=== PATIENT | female | born 1990 | race Caucasian/White ===

== ENCOUNTER 2017-07-02 11:58 | Inpatient (IN) | payer BC, OTHER ==
[~2017-07-02] VITALS: Ht 162.6 cm; Wt 113.3 kg
[~2017-07-02 11:58] MED LIST: CEPH500 PO; CODACE30 PO; IBUP800 PO; Lopressor 25 mg25 MG PO; METO25 PO; METO25ER PO; OXYACE5T PO
[2017-07-06] MEDS ORDERED: ACET325 PO (08:03)
[2017-07-06] MEDS ORDERED: Prenatabs FA T1 EACH PO (08:04)
[2017-07-08 10:28] LABS: BASOPHILS ABSOLUTE AUTO 0.02 K/mm3 (0.00-0.23); BASOPHILS PERCENT AUTO 0 % (0-2); EOSINOPHILS ABSOLUTE AUTO 0.29 K/mm3 (0.00-0.68); EOSINOPHILS PERCENT AUTO 2 % (0-6); Hematocrit 37.6 % (33.0-51.0); Hemoglobin 11.9 g/dL (11.5-16.0); IMMATURE GRAN ABSOLUTE AUTO 0.11 K/mm3 (0.00-0.10); IMMATURE GRAN PERCENT AUTO 1 % (0-1); LYMPHOCYTES ABSOLUTE AUTO 1.83 K/mm3 (0.84-5.20); LYMPHOCYTES PERCENT AUTO 14 % (21-46); MONOCYTES ABSOLUTE AUTO 1.03 K/mm3 (0.16-1.47); MONOCYTES PERCENT AUTO 8 % (4-13); Mean Corpuscular HGB 26.6 pg (26.0-34.0); Mean Corpuscular HGB Conc 31.6 g/dL (31.5-36.5); Mean Corpuscular Volume 84 fL (80-100); Mean Platelet Volume 10.1 fL (9.1-12.4); NEUTROPHILS ABSOLUTE AUTO 9.94 K/mm3 (1.96-9.15); NEUTROPHILS PERCENT AUTO 75 % (41-73); Platelet Count 247 K/mm3 (150-400); RDW Coefficient Variation 16.4 % (11.7-14.2); RDW Standard Deviation 49.9 fL (35.1-46.3); Red Blood Cell Count 4.47 M/mm3 (3.80-5.20); White Blood Cell Count 13.22 K/mm3 (4.00-11.30)
[2017-07-09 08:17] LABS: PCO2 Cord - Arterial 53.1 mmHg (40-50); PO2 Cord - Arterial 16.9 mmHg (16-20); pH Cord - Arterial 7.31 (7.28-7.35)
[2017-07-09 08:24] LABS: PCO2 Cord - Venous 42.9 mmHg (40-50); PO2 Cord - Venous 30.5 mmHg (28-32); pH Umbilical Cord - Venous 7.37 (7.26-7.35)
[2017-07-10 06:38] LABS: Hematocrit 33.1 % (33.0-51.0); Hemoglobin 10.2 g/dL (11.5-16.0); Mean Corpuscular HGB 26.4 pg (26.0-34.0); Mean Corpuscular HGB Conc 30.8 g/dL (31.5-36.5); Mean Corpuscular Volume 86 fL (80-100); Mean Platelet Volume 10.3 fL (9.1-12.4); Platelet Count 198 K/mm3 (150-400); RDW Standard Deviation 52.5 fL (35.1-46.3); Red Blood Cell Count 3.87 M/mm3 (3.80-5.20); White Blood Cell Count 10.65 K/mm3 (4.00-11.30)
== END 2017-07-11 13:13 | disposition home or self-care (01) | DRG 766 ==
LOC: BC 07-09 05:52
PROVIDERS: Obstetrics & Gynecology
PROC: 10D00Z1 Extraction of Products of Conception, Low, Open Approach (ICD-10-PCS; principal; 2017-07-09 07:30)
DX: O34.211 Maternal care for low transverse scar from previous cesarean delivery (principal); O13.4 Gestational [pregnancy-induced] hypertension without significant proteinuria, complicating childbirth; O36.63X0 Maternal care for excessive fetal growth, third trimester, not applicable or unspecified; Z3A.39 39 weeks gestation of pregnancy; Z37.0 Single live birth; O69.81X0 Labor and delivery complicated by cord around neck, without compression, not applicable or unspecified
CPT/HCPCS: 36415; 82803; 85025; 85027; 86850; 86900; 86901; 93005; 93010; J0690; J0697; J1885; J2405; J2590; J2765; J7120

== ENCOUNTER 2018-03-13 09:24 | Emergency (ER) | payer MEDICAID ==
[~2018-03-13] VITALS: Ht 167.6 cm; Wt 90.7 kg
[~2018-03-13 09:24] MED LIST changes: +ACET325 PO; +Prenatabs FA T1 EACH PO
[2018-03-13] MEDS ORDERED: OLUX100 GM (10:02)
[2018-03-13] MEDS ORDERED: IBUP600 PO (10:55)
== END 2018-03-13 11:00 | disposition home or self-care (01) ==
LOC: ER 09:24
DX: J02.0 Streptococcal pharyngitis (principal); Z79.899 Other long term (current) drug therapy
CPT/HCPCS: 87430; 96372; 99282; J0561; J1100

== ENCOUNTER 2019-04-07 15:13 | Inpatient (IN) | payer OTHER ==
[2019-04-06 15:45] LABS: BASOPHILS ABSOLUTE AUTO 0.04 K/mm3 (0.00-0.23); BASOPHILS PERCENT AUTO 0 % (0-2); EOSINOPHILS ABSOLUTE AUTO 0.21 K/mm3 (0.00-0.68); EOSINOPHILS PERCENT AUTO 2 % (0-6); Hematocrit 35.3 % (33.0-51.0); Hemoglobin 10.8 g/dL (11.5-16.0); IMMATURE GRAN ABSOLUTE AUTO 0.05 K/mm3 (0.00-0.10); IMMATURE GRAN PERCENT AUTO 1 % (0-1); LYMPHOCYTES ABSOLUTE AUTO 1.74 K/mm3 (0.84-5.20); LYMPHOCYTES PERCENT AUTO 17 % (21-46); MONOCYTES ABSOLUTE AUTO 0.82 K/mm3 (0.16-1.47); MONOCYTES PERCENT AUTO 8 % (4-13); Mean Corpuscular HGB 25.2 pg (26.0-34.0); Mean Corpuscular HGB Conc 30.6 g/dL (31.5-36.5); Mean Corpuscular Volume 83 fL (80-100); Mean Platelet Volume 11.1 fL (9.1-12.4); NEUTROPHILS ABSOLUTE AUTO 7.63 K/mm3 (1.96-9.15); NEUTROPHILS PERCENT AUTO 73 % (41-73); Platelet Count 204 K/mm3 (150-400); RDW Standard Deviation 47.8 fL (35.1-46.3); Red Blood Cell Count 4.28 M/mm3 (3.80-5.20); White Blood Cell Count 10.49 K/mm3 (4.00-11.30)
[~2019-04-07] VITALS: Ht 165.1 cm; Wt 116.2 kg
[~2019-04-07 15:13] MED LIST changes: +IBUP600 PO; +OLUX100 GM; +PRENATAL TABLE1 EAC2 PO
[2019-04-08 11:41] LABS: PCO2 Cord - Arterial 53.2 mmHg (40-50); PO2 Cord - Arterial 20.2 mmHg (16-20); pH Cord - Arterial 7.25 (7.28-7.35)
[2019-04-08 11:43] LABS: PCO2 Cord - Venous 39.6 mmHg (40-50); PO2 Cord - Venous 29.4 mmHg (28-32); pH Umbilical Cord - Venous 7.38 (7.26-7.35)
[2019-04-08 11:48] LABS: PCO2 Cord - Arterial 54.8 mmHg (40-50); PO2 Cord - Arterial 15.5 mmHg (16-20)
[2019-04-08 11:49] LABS: PCO2 Cord - Venous 42.8 mmHg (40-50); PO2 Cord - Venous 20.4 mmHg (28-32); pH Umbilical Cord - Venous 7.35 (7.26-7.35)
--- NOTE | 2019-04-08 11:49 | NUR ---
04/08/19 1149 Deanne Goodman 1122 DELIVERY VIABLE FEMALE WEIGHT 2525GM 5# 9OZ, APGARS 9/9 HEAD 13 INCHES, CHEST 12 INCHES, LENGTH 19 INCHES, UMBILICAL CORD BLOOD COLLECTED LABELED BABY A GIVEN TO RN, 1123 DELIVERY BABY B VIABLE FEMALE INFANT ZOE 2545GM 5# 10OZ, HEAD 13 INCHES, CHEST 12.75 INCHES, LENGTH 18.5 INCHES APGARS 9/9, UMBILICAL CORD BLOOD COLLECTED LABELED BABY B GIVEN TO RN. UMIBILICAL CORD SEGMENTS FROM EACH BABY COLLECTED LABELED BABY A AND BABY B SENT WITH RT FOR CORD GASES. RIGHT AND LEFT FALLOPIAN TUBES COLLECTED LABELED A: RIGHT FALLOPIAN TUBE, B: LEFT FALLOPIAN TUBE C: PLACENTA ( CLAMP ON BABY B CORD)
--- NOTE | 2019-04-08 12:55 | NUR ---
DR. ROMERO IN PACU TO SEE BABIES PT DENIES PAIN OR DISCOMFORT, ABLE TO MOVE BOTH FEET
--- NOTE | 2019-04-08 14:00 | NUR ---
REPORT OFF TO CHARLY MOLINAC
--- NOTE | 2019-04-09 05:41 | NUR ---
T/O SHIFT PATIENT DENIED NEED FOR REPOSITIONING. RN OFFERED TO REPOSITION PATIENT T/O SHIFT IN WHICH PATIENT REFUSED. UPON ENTERING ROOM PATIENT WAS SCOOTING HERSELF UP IN THE BED. RN OFFERED TO HELP THE PATIENT, PATIENT STATED SHE COULD DO IT AND DENIED ANY HELP.
[2019-04-09 06:02] LABS: BASOPHILS ABSOLUTE AUTO 0.03 K/mm3 (0.00-0.23); BASOPHILS PERCENT AUTO 0 % (0-2); EOSINOPHILS ABSOLUTE AUTO 0.15 K/mm3 (0.00-0.68); EOSINOPHILS PERCENT AUTO 2 % (0-6); Hematocrit 31.4 % (33.0-51.0); Hemoglobin 9.6 g/dL (11.5-16.0); IMMATURE GRAN ABSOLUTE AUTO 0.04 K/mm3 (0.00-0.10); IMMATURE GRAN PERCENT AUTO 1 % (0-1); LYMPHOCYTES ABSOLUTE AUTO 1.89 K/mm3 (0.84-5.20); LYMPHOCYTES PERCENT AUTO 21 % (21-46); MONOCYTES ABSOLUTE AUTO 0.56 K/mm3 (0.16-1.47); MONOCYTES PERCENT AUTO 6 % (4-13); Mean Corpuscular HGB 25.5 pg (26.0-34.0); Mean Corpuscular HGB Conc 30.6 g/dL (31.5-36.5); Mean Corpuscular Volume 84 fL (80-100); Mean Platelet Volume 11.1 fL (9.1-12.4); NEUTROPHILS ABSOLUTE AUTO 6.17 K/mm3 (1.96-9.15); NEUTROPHILS PERCENT AUTO 70 % (41-73); Platelet Count 185 K/mm3 (150-400); RDW Coefficient Variation 16.7 % (11.7-14.2); RDW Standard Deviation 49.2 fL (35.1-46.3); Red Blood Cell Count 3.76 M/mm3 (3.80-5.20); White Blood Cell Count 8.84 K/mm3 (4.00-11.30)
--- NOTE | 2019-04-09 10:00 | NUR ---
ASSUMED CARE. PT IN BED FEEDING NB.
--- NOTE | 2019-04-09 11:00 | NUR ---
PT IV INFILTRATED. EMIR FRANCISCO CNM TALKED TO DR ROTH, AND PT DOES NOT NEED TO HAVE THE LAST DOSE OF ABX.
--- NOTE | 2019-04-09 18:31 | NUR ---
REPORT TO ONCOMING SHIFT
--- NOTE | 2019-04-09 20:00 | NUR ---
RN IN ROOM DOING ASSESSMENTS. SUGGESTED TO MOM ABOUT FEEDING BABIES SOON SINCE IT HAD BEEN TWO HOURS. EDUCATED MOM ON INFANT WEIGHT LOSS AND CONCERNS WITH FEEDS. SUGGESTED INCREASING SNS AMOUNT TO 15CC IF TOLERATED AND TO FEED BABIES EVERY 2-2.5 HOURS.
--- NOTE | 2019-04-09 22:00 | NUR ---
RN TO ROOM TO SEE HOW FEEDING WENT. MOM STATED SHE HAD ATTEMPTED TO PUT BABY B TO BREAST, SHE SUCKLED FOR A FEW SECONDS AND THEN FELL BACK TO SLEEP SO SHE WENT FOR A WALK. IT HAD BEEN ALMOST FOUR HOURS SINCE LAST FEED, RN EDUCATED MOM ON THE IMPORTANCE FOR FEEDING INFANTS EVERY 2-2.5 HOURS. RN DISCUSSED WITH PATIENT PUMPING AND SYRINGE FEEDING BABIES PUMPED COLOSTRUM. EDUCATED MOM ON RNS CONCERNS REGARDING BABIES WEIGHT LOSS. BABY A BEING AT -8% BABY B AT -6%. DISCUSSED CONCERNS OF BABIES WORKING TOO HARD AND BURNING ENERGY AT THE BREAST DUE TO BABIES NOT LATCHING/SUCKING WELL AT THE BREAST. MOM STATED SHE REFUSES TO PUMP HER BREASTS BECAUSE SHE DOES NOT WANT TO START CRAMPING. STATES SHE FEELS THAT HER MILK WILL BE IN SOON AND PLANS TO CONTINUE TO DO SNS AT THE BREAST W/ 15CC FORMULA.
--- NOTE | 2019-04-10 10:51 | NUR ---
CONSULT. MOM IS EXPERIENCED WITH BF FULL TERM INFANTS. FEELS LIKE HER MILK IS STARTING TO COME IN. DOES NOT WANT TO PUMP, FEELS HER BODY WILL RESPOND ON ITS OWN. INSTRUCT IN THE NEEDS OF THE , ENERGY CONSERVATION, LIMITED LENGTH OF FEEDINGS TO CONSERVE ENERGY, SLOWER WT GAIN, AND THEIR INCREASED NEED TO SLEEP. INSTRUCT IN CHANGES TO EXPECT DURING THE FIRST WEEK WITH FEEDINGS AND WITH BABY'S, AND THAT THEIR FULL FEEDING STRENGTH WILL OCCUR SLOWLY OVER THE NEXT 3-4 WEEKS, AND THEIR ABILITY TO ONLY BF WILL SLOWLY IMPROVE ALSO. QUESTIONS ANSWERED. PLAN IS TO PROVIDE FEEDING SYRINGES, FEEDING TUBE WITH SNS SYRINGE, DIFFERENT TYPES OF NIPPLES FOR BOTTLES, TO TRY ALONG WITH BF SO BABY'S GET ENOUGH CALORIES IN TO START GAINING WEIGHT.
--- NOTE | 2019-04-10 16:53 | NUR ---
Assumed care from Elian Cuello RN.
[2019-04-10] MEDS ORDERED: Percocet 5-3251 EACH PO (18:26)
[2019-04-10] MEDS ORDERED: IBUP800 PO (18:27)
--- NOTE | 2019-04-10 19:30 | NUR ---
ASSUMED CARE OF PT. REPORT RECEIVED FROM BLAS Padilla
== END 2019-04-11 19:20 | disposition home or self-care (01) | DRG 785 ==
LOC: BC 04-08 09:33
PROVIDERS: ADMIT Obstetrics & Gynecology
PROC: 10D00Z1 Extraction of Products of Conception, Low, Open Approach (ICD-10-PCS; principal; 2019-04-08 10:45)
PROC: 0UT70ZZ Resection of Bilateral Fallopian Tubes, Open Approach (ICD-10-PCS; 2019-04-08 10:45)
DX: O34.211 Maternal care for low transverse scar from previous cesarean delivery (principal); O30.033 Twin pregnancy, monochorionic/diamniotic, third trimester; N85.8 Other specified noninflammatory disorders of uterus; Z3A.36 36 weeks gestation of pregnancy; Z37.2 Twins, both liveborn; O99.02 Anemia complicating childbirth; D64.9 Anemia, unspecified; O99.824 Streptococcus B carrier state complicating childbirth; O32.8XX2 Maternal care for other malpresentation of fetus, fetus 2; O99.72 Diseases of the skin and subcutaneous tissue complicating childbirth; L40.50 Arthropathic psoriasis, unspecified; Z30.2 Encounter for sterilization; Z79.899 Other long term (current) drug therapy
CPT/HCPCS: 36415; 82803; 85025; 86850; 86900; 86901; 88302; 88307; 93005; 93010; J0690; J1885; J2590; J2765; J3010; J7120

== ENCOUNTER → 2019-06-02 | Outpatient (CLI) | payer OTHER ==
[~2019-06-02] MED LIST changes: +Percocet 5-3251 EACH PO
[2019-06-02 16:04] LABS: BASOPHILS ABSOLUTE AUTO 0.07 K/mm3 (0.00-0.23); BASOPHILS PERCENT AUTO 1 % (0-2); EOSINOPHILS ABSOLUTE AUTO 0.42 K/mm3 (0.00-0.68); EOSINOPHILS PERCENT AUTO 4 % (0-6); Hemoglobin 13.5 g/dL (11.5-16.0); IMMATURE GRAN ABSOLUTE AUTO 0.02 K/mm3 (0.00-0.10); IMMATURE GRAN PERCENT AUTO 0 % (0-1); LYMPHOCYTES ABSOLUTE AUTO 2.23 K/mm3 (0.84-5.20); LYMPHOCYTES PERCENT AUTO 23 % (21-46); MONOCYTES ABSOLUTE AUTO 0.56 K/mm3 (0.16-1.47); MONOCYTES PERCENT AUTO 6 % (4-13); Mean Corpuscular HGB 26.1 pg (26.0-34.0); Mean Corpuscular HGB Conc 32.1 g/dL (31.5-36.5); Mean Corpuscular Volume 81 fL (80-100); Mean Platelet Volume 9.7 fL (9.1-12.4); NEUTROPHILS ABSOLUTE AUTO 6.55 K/mm3 (1.96-9.15); NEUTROPHILS PERCENT AUTO 67 % (41-73); Platelet Count 297 K/mm3 (150-400); RDW Coefficient Variation 15.6 % (11.7-14.2); RDW Standard Deviation 46.5 fL (35.1-46.3); Red Blood Cell Count 5.17 M/mm3 (3.80-5.20); White Blood Cell Count 9.85 K/mm3 (4.00-11.30)
[2019-06-02 16:14] LABS: Alanine Aminotransfer (ALT/SGP 41 U/L (12-78); Albumin, Blood 4.3 g/dL (3.4-5.0); Albumin/Globulin Ratio 1.2 (0.8-1.8); Alk Phos 91 U/L (40-126); Anion Gap 11 mmol/L (6-16); Aspartate Aminotrans (AST/SGOT 29 U/L (12-37); Bilirubin, Total 0.4 mg/dL (0.1-1.0); Blood Urea Nitrogen 13 mg/dL (8-24); Bun/Creatinine Ratio 16.3 (12.0-20.0); CO2, Blood 26 mmol/L (21-32); Calcium, Blood 9.1 mg/dL (8.5-10.1); Chloride, Blood 107 mmol/L (98-108); Globulin, Blood 3.5 g/dL (2.2-4.0); Glomerular Filtration Rate >60 (60-); Glucose, Blood 84 mg/dL (70-99); Potassium, Blood 3.8 mmol/L (3.5-5.5); Sodium, Blood 144 mmol/L (136-145); Total Protein, Blood 7.8 g/dL (6.4-8.2)
== END | disposition home or self-care (01) ==
LOC: LAB SHORT 15:59 → LAB EV 15:59
PROVIDERS: Physician Assistant
DX: R11.2 Nausea with vomiting, unspecified (principal)
CPT/HCPCS: 80053; 83690; 85025

== ENCOUNTER → 2020-04-20 | Outpatient (CLI) | payer OTHER | LOC: LAB SHORT 18:15 | DX: J02.9 Acute pharyngitis, unspecified (principal) | CPT/HCPCS: 87081 ==

== ENCOUNTER 2021-12-25 17:32 | Emergency (ER) | payer OTHER ==
[~2021-12-25] VITALS: Ht 165.1 cm; Wt 104.3 kg
[2021-12-25 18:05] LABS: BASOPHILS ABSOLUTE AUTO 0.08 K/mm3 (0.00-0.23); BASOPHILS PERCENT AUTO 1 % (0-2); EOSINOPHILS ABSOLUTE AUTO 0.45 K/mm3 (0.00-0.68); EOSINOPHILS PERCENT AUTO 4 % (0-6); Hematocrit 42.1 % (33.0-51.0); Hemoglobin 13.6 g/dL (11.5-16.0); IMMATURE GRAN ABSOLUTE AUTO 0.03 K/mm3 (0.00-0.10); IMMATURE GRAN PERCENT AUTO 0 % (0-1); LYMPHOCYTES PERCENT AUTO 26 % (21-46); MONOCYTES ABSOLUTE AUTO 0.61 K/mm3 (0.16-1.47); MONOCYTES PERCENT AUTO 6 % (4-13); Mean Corpuscular HGB 26.9 pg (26.0-34.0); Mean Corpuscular HGB Conc 32.3 g/dL (31.5-36.5); Mean Corpuscular Volume 83 fL (80-100); Mean Platelet Volume 9.8 fL (9.1-12.4); NEUTROPHILS ABSOLUTE AUTO 6.51 K/mm3 (1.96-9.15); NEUTROPHILS PERCENT AUTO 63 % (41-73); Platelet Count 298 K/mm3 (150-400); RDW Coefficient Variation 13.1 % (11.7-14.2); RDW Standard Deviation 39.7 fL (35.1-46.3); Red Blood Cell Count 5.05 M/mm3 (3.80-5.20); White Blood Cell Count 10.38 K/mm3 (4.00-11.30)
[2021-12-25 18:47] LABS: Albumin, Blood 3.8 g/dL (3.4-5.0); Bilirubin, Total 0.2 mg/dL (0.1-1.0); Bun/Creatinine Ratio 18.3 (12.0-20.0); C-REACTIVE PROTEIN, EXT RANGE 1.32 mg/dL (0.000-0.300); Calcium, Blood 9.5 mg/dL (8.5-10.1); Creatinine, Blood 0.71 mg/dL (0.40-1.00); Globulin, Blood 3.8 g/dL (2.2-4.0); Potassium, Blood 3.5 mmol/L (3.5-5.5); Total Protein, Blood 7.6 g/dL (6.4-8.2)
== END 2021-12-25 22:10 | disposition home or self-care (01) ==
LOC: ER 17:32
PROVIDERS: Physician Assistant
DX: R07.89 Other chest pain (principal); R06.02 Shortness of breath; R20.2 Paresthesia of skin; R00.2 Palpitations; Z79.899 Other long term (current) drug therapy
CPT/HCPCS: 36415; 71045; 80053; 84484; 85025; 85379; 86140

== ENCOUNTER → 2022-04-30 | Outpatient (CLI) | payer OTHER | END | disposition home or self-care (01) | LOC: LAB 14:05 → LAB SHORT 14:05 | DX: J02.9 Acute pharyngitis, unspecified (principal) | CPT/HCPCS: 87081 ==

== ENCOUNTER 2022-05-03 11:54 | Emergency (ER) | payer OTHER ==
[~2022-05-03] VITALS: Ht 165.1 cm; Wt 108.9 kg
[2022-05-03 12:55] LABS: Source, Urine Clean Catch
[2022-05-03 12:59] LABS: Appearance, Urine Clear (Clear); Bilirubin, Urine Neg (Neg); Blood, Urine Neg (Neg); Color, Urine Yellow (P-Yellow); Glucose Qualitative, Urine Neg (Neg); Ketones, Urine Neg (Neg); Leukocyte Esterase, Urine Neg (Neg); Nitrite, Urine Neg (Neg); Protein, Urine Neg (Neg); Urobilinogen, Urine NORM (Normal)
[2022-05-03 13:11] LABS: U Amphetamine Screen Not Detected; U Barbituate Screen Not Detected; U Benzodiazapine Screen Not Detected; U Buprenorphine Screen Not Detected; U Cannabinoids Screen Not Detected; U Cocaine Screen Not Detected; U Methadone Screen Not Detected; U Methamphetamine Screen Not Detected; U Opiates Screen Not Detected; U Oxycodone Screen Not Detected; U Phencyclidine Screen Not Detected; U Propoxyphene Screen Not Detected
[2022-05-03 13:50] LABS: BASOPHILS ABSOLUTE AUTO 0.06 K/mm3 (0.00-0.23); BASOPHILS PERCENT AUTO 1 % (0-2); EOSINOPHILS ABSOLUTE AUTO 0.37 K/mm3 (0.00-0.68); EOSINOPHILS PERCENT AUTO 4 % (0-6); Hematocrit 42.9 % (33.0-51.0); Hemoglobin 14.1 g/dL (11.5-16.0); IMMATURE GRAN ABSOLUTE AUTO 0.02 K/mm3 (0.00-0.10); IMMATURE GRAN PERCENT AUTO 0 % (0-1); LYMPHOCYTES ABSOLUTE AUTO 2.41 K/mm3 (0.84-5.20); LYMPHOCYTES PERCENT AUTO 25 % (21-46); MONOCYTES ABSOLUTE AUTO 0.53 K/mm3 (0.16-1.47); MONOCYTES PERCENT AUTO 6 % (4-13); Mean Corpuscular HGB 27.6 pg (26.0-34.0); Mean Corpuscular HGB Conc 32.9 g/dL (31.5-36.5); Mean Corpuscular Volume 84 fL (80-100); Mean Platelet Volume 10.7 fL (9.1-12.4); NEUTROPHILS ABSOLUTE AUTO 6.29 K/mm3 (1.96-9.15); NEUTROPHILS PERCENT AUTO 65 % (41-73); Platelet Count 328 K/mm3 (150-400); RDW Standard Deviation 39.6 fL (35.1-46.3); White Blood Cell Count 9.68 K/mm3 (4.00-11.30)
[2022-05-03 14:13] LABS: Alanine Aminotransfer (ALT/SGP 46 U/L (12-78); Albumin, Blood 3.7 g/dL (3.4-5.0); Albumin/Globulin Ratio 0.9 (0.8-1.8); Alk Phos 67 U/L (50-136); Anion Gap 4 mmol/L (6-16); Aspartate Aminotrans (AST/SGOT 60 U/L (12-37); Bilirubin, Total 0.5 mg/dL (0.1-1.0); Blood Urea Nitrogen 10 mg/dL (8-24); Bun/Creatinine Ratio 16.4 (12.0-20.0); CO2, Blood 26 mmol/L (21-32); Chloride, Blood 107 mmol/L (98-108); Creatinine, Blood 0.61 mg/dL (0.40-1.00); Ethanol (Alcohol), Blood, Med <3 mg/dL; Glomerular Filtration Rate 123 (60-); Glucose, Blood 84 mg/dL (70-99); Potassium, Blood 4.6 mmol/L (3.5-5.5); Sodium, Blood 137 mmol/L (136-145); Total Protein, Blood 7.7 g/dL (6.4-8.2)
== END 2022-05-03 15:00 | disposition home or self-care (01) ==
LOC: ER 11:54
PROVIDERS: Physician Assistant
DX: H53.9 Unspecified visual disturbance (principal)
CPT/HCPCS: 36415; 70450; 80053; 81003; 85025; 93005; 93010; G0480

== ENCOUNTER 2022-07-25 08:41 | Day surgery (SDC) | payer OTHER ==
--- NOTE | 2022-07-25 10:06 | NUR ---
PT PREPPED FOR CTA PER PROTOCOL, 3 DOSES OF IV METPROLOL 5 MG IV GIVEN THRU 20 G IV IN R AC. PT EDU WELL, CTA COMPLETED, PT DRESSED AND AMBULATES OUT OF CT AREA - STABLE. SEE CT WORKSHEET FOR MED/VS, PRE, DURING, AND POST PROCEDURE
== END 2022-07-25 22:42 | disposition home or self-care (01) ==
LOC: CT 08:41
DX: R07.9 Chest pain, unspecified (principal); R42 Dizziness and giddiness
CPT/HCPCS: 75574; Q9967

== ENCOUNTER → 2022-11-17 | Outpatient (CLI) | payer OTHER ==
[2022-11-17 12:36] LABS: BASOPHILS ABSOLUTE AUTO 0.05 K/mm3 (0.00-0.23); BASOPHILS PERCENT AUTO 1 % (0-2); EOSINOPHILS ABSOLUTE AUTO 0.44 K/mm3 (0.00-0.68); EOSINOPHILS PERCENT AUTO 5 % (0-6); Hematocrit 39.1 % (33.0-51.0); Hemoglobin 13.1 g/dL (11.5-16.0); IMMATURE GRAN ABSOLUTE AUTO 0.03 K/mm3 (0.00-0.10); IMMATURE GRAN PERCENT AUTO 0 % (0-1); LYMPHOCYTES ABSOLUTE AUTO 2.17 K/mm3 (0.84-5.20); LYMPHOCYTES PERCENT AUTO 22 % (21-46); MONOCYTES ABSOLUTE AUTO 0.62 K/mm3 (0.16-1.47); MONOCYTES PERCENT AUTO 6 % (4-13); Mean Corpuscular HGB 27.6 pg (26.0-34.0); Mean Corpuscular HGB Conc 33.5 g/dL (31.5-36.5); Mean Corpuscular Volume 83 fL (80-100); NEUTROPHILS PERCENT AUTO 66 % (41-73); Platelet Count 287 K/mm3 (150-400); RDW Coefficient Variation 13.2 % (11.7-14.2); RDW Standard Deviation 39.3 fL (35.1-46.3); Red Blood Cell Count 4.74 M/mm3 (3.80-5.20); White Blood Cell Count 9.71 K/mm3 (4.00-11.30)
[2022-11-17 12:44] LABS: Albumin, Blood 3.6 g/dL (3.4-5.0); Bilirubin, Total 0.2 mg/dL (0.1-1.0); Bun/Creatinine Ratio 14.1 (12.0-20.0); Creatinine, Blood 0.71 mg/dL (0.40-1.00); Globulin, Blood 3.6 g/dL (2.2-4.0); Potassium, Blood 3.7 mmol/L (3.5-5.5); Total Protein, Blood 7.2 g/dL (6.4-8.2)
== END | disposition home or self-care (01) ==
LOC: LAB SHORT 12:30 → LAB 12:30
PROVIDERS: Family Medicine
DX: R10.9 Unspecified abdominal pain (principal)
CPT/HCPCS: 80053; 85025

== ENCOUNTER → 2023-10-21 | Outpatient (CLI) | payer OTHER ==
[2023-10-21 15:29] LABS: BASOPHILS ABSOLUTE AUTO 0.07 K/mm3 (0.00-0.23); BASOPHILS PERCENT AUTO 1 % (0-2); EOSINOPHILS ABSOLUTE AUTO 0.43 K/mm3 (0.00-0.68); EOSINOPHILS PERCENT AUTO 4 % (0-6); Hematocrit 42.2 % (33.0-51.0); Hemoglobin 13.7 g/dL (11.5-16.0); IMMATURE GRAN ABSOLUTE AUTO 0.02 K/mm3 (0.00-0.10); IMMATURE GRAN PERCENT AUTO 0 % (0-1); LYMPHOCYTES ABSOLUTE AUTO 2.82 K/mm3 (0.84-5.20); LYMPHOCYTES PERCENT AUTO 26 % (21-46); MONOCYTES ABSOLUTE AUTO 0.59 K/mm3 (0.16-1.47); MONOCYTES PERCENT AUTO 6 % (4-13); Mean Corpuscular HGB 27.6 pg (26.0-34.0); Mean Corpuscular HGB Conc 32.5 g/dL (31.5-36.5); Mean Corpuscular Volume 85 fL (80-100); Mean Platelet Volume 10.7 fL (9.1-12.4); NEUTROPHILS ABSOLUTE AUTO 6.86 K/mm3 (1.96-9.15); NEUTROPHILS PERCENT AUTO 64 % (41-73); Platelet Count 307 K/mm3 (150-400); RDW Coefficient Variation 13.6 % (11.7-14.2); RDW Standard Deviation 41.8 fL (35.1-46.3); Red Blood Cell Count 4.96 M/mm3 (3.80-5.20); White Blood Cell Count 10.79 K/mm3 (4.00-11.30)
[2023-10-21 15:54] LABS: Albumin/Globulin Ratio 1.1 (0.8-1.8); Bilirubin, Total 0.8 mg/dL (0.1-1.0); Bun/Creatinine Ratio 18.1 (12.0-20.0); Calcium, Blood 9.3 mg/dL (8.5-10.1); Creatinine, Blood 0.72 mg/dL (0.40-1.00); Globulin, Blood 3.7 g/dL (2.2-4.0); Potassium, Blood 3.8 mmol/L (3.5-5.5); Thyroid Stimulating Hormone 0.764 uIU/mL (0.360-4.800); Total Protein, Blood 7.7 g/dL (6.4-8.2)
[2023-10-22 08:12] LABS: FERRITIN 33 ng/mL (15-150)
[2023-10-22 09:12] LABS: IRON BIND.CAP.(TIBC) 345 ug/dL (250-450); IRON SATURATION 20 % (15-55); IRON, SERUM 70 ug/dL (27-159); UIBC 275 ug/dL (131-425)
== END ==
LOC: LAB SHORT 12:43 → LAB 12:43
PROVIDERS: Student in an Organized Health Care Education/Training Program
DX: R53.83 Other fatigue (principal)
CPT/HCPCS: 80053; 82728; 83540; 83550; 84443; 85025